=== PATIENT | female | born 1990 | race Caucasian/White ===

== ENCOUNTER 2021-12-29 06:52 | Emergency (ER) | payer OTHER, SELFPAY ==
[2021-12-29 07:00] VITALS: BP 131/82; PULSE 104; RESP 18; TEMP 36.8; O2SAT 100
--- NOTE | 2021-12-29 08:18 | PC.NURSE ---
Pt resting on stretcher. Awaiting orders or disposition.
--- NOTE | 2021-12-29 08:52 | PC.NURSE ---
Pt resting on stretcher. Still awaiting orders or disposition. Pt has been updated. Call light within reach.
--- NOTE | 2021-12-29 09:05 | PC.NURSE ---
PA at bedside for pt assessment.
--- NOTE | 2021-12-29 09:10 | ED.DENTAL ---
HPI - Dental/Oral General Chief complaint: Dental/Oral <Rosemary Marcum PA-C - Last Filed: 12/29/21 17:54> Stated complaint: dental pain <Rosemary Marcum PA-C - Last Filed: 12/29/21 17:54> Time Seen by Provider: 12/29/21 06:59 <Rosemary Marcum PA-C - Last Filed: 12/29/21 17:54> Source: patient <AVERY Trinidad Last Filed: 12/29/21 17:54> Mode of arrival: ambulatory <AVERY Trinidad Last Filed: 12/29/21 17:54> Limitations: no limitations <AVERY Trinidad Last Filed: 12/29/21 17:54> History of Present Illness HPI Narrative: Patient is a 31-year-old female who presents the ED with complaint of dental pain. Patient reports having pain in her right molar and premolar. She had these teeth extracted last by Dr. Mccauley in [place], [place] and has since developed pain in both sockets. Denies any recurrent bleeding or pus-like drainage. No gum swelling. She has been taking Ibuprofen and Tylenol alternating at home with minimal relief. She tried calling her dentist but was advised to come to the ED. Hot/cold sensitivity improved since extraction. Patient has been on amoxicillin 500 mg since before the extraction as she previously had another left upper dental extraction recently. She is still currently taking these. She is scheduled to see her dentist again next Friday. Denies any fever, chills, nausea, vomiting, neck pain, trouble breathing or swallowing. No drug use. <AVERY Trinidad Last Filed: 12/29/21 17:54> Related Data Allergies/adverse reactions: Allergies Allergy/AdvReac Type Severity Reaction Status Date / Time No Known Allergies Allergy Verified 12/29/21 07:19 <AVERY Trinidad Last Filed: 12/29/21 17:54> Review of Systems Review of Systems: CONSTITUTIONAL: Denies fever, chills. ENT: Reports pain in R upper molar and premolar. Denies dysphagia, sore throat, bleeding/pus from dental sockets, gum swelling. RESPIRATORY: Denies dyspnea. GASTROINTESTINAL: Denies nausea, vomiting. MUSCULOSKELETAL: Denies neck pain. <Rosemary Marcum PA-C - Last Filed: 12/29/21 17:54> All systems reviewed & are unremarkable except as noted in HPI and below <Rosemary Marcum PA-C - Last Filed: 12/29/21 17:54> PMFSH Past Medical History Medical History: Medical History (Updated 12/29/21 @ 17:16 by Rosemary Marcum PA-C) No pertinent past medical history <Rosemary Marcum PA-C - Last Filed: 12/29/21 17:54> Surgical History Surgical History: Surgical History (Updated 12/29/21 @ 17:45 by Rosemary Marcum PA-C) H/O tooth extraction History of section <Rosemary Marcum PA-C - Last Filed: 12/29/21 17:54> Family History Family History: Family History (Updated 05/05/14 @ 07:13 by DOCTOR UNKNOWN) Father Family history of heart disease in male family member before age 55 <Rosemary Marcum PA-C - Last Filed: 12/29/21 17:54> Social History Social History: Social History (Updated 12/29/21 @ 17:16 by Rosemary Marcum PA-C) Smoking status: Never smoker Alcohol intake: never Substance use: never <Rosemary Marcum PA-C - Last Filed: 12/29/21 17:54> Exam Narrative: GENERAL: Tearful, well-nourished, non-toxic, in mild acute distress. HEAD: Normocephalic, atraumatic. EYES: EOMI, conjunctivae clear bilaterally. THROAT: Extremely poor dentition. Several broken L upper teeth. Dental extractions at teeth #1 and 2 (R upper), and #10 (L frontal). Mild erythema surrounding dental socket around extraction at #2, but no fluctuance appreciated. No gum swelling or fluctuance. Pharynx clear, no exudate. MMs moist. NECK: Supple. No tender adenopathy, no masses. RESPIRATORY: Airway patent, respirations nonlabored. Clear to auscultation bilaterally, no rales, rhonchi, wheezing. CARDIOVASCULAR: Regular rate and rhythm without murmurs, rubs, or gallops. Radial pulses 2+ and equal bilaterally. MUSCULOSKELETAL: Moves all extremities. Strength/ROM
[2021-12-29] MEDS: HYDROcodone/acetaminophen (*CRX) 5-325 MG TABLET 1 TAB PO (09:14)
== END 2021-12-29 09:30 | disposition home or self-care (01) ==
PROVIDERS: Emergency Provider Emergency Medicine
DX: K08.89 Other specified disorders of teeth and supporting structures (principal); Z98.818 Other dental procedure status
CPT/HCPCS: 99283; A9270

== ENCOUNTER 2023-01-05 11:08 | Emergency (ER) | payer OTHER, SELFPAY ==
--- NOTE | ~2023-01-05 | XR_ITS ---
EXAMINATION: XR chest 2V DATE: 01/05/2023 12:14 INDICATION: Cough with rales and wheezing TECHNIQUE: PA and lateral views of the chest were obtained. COMPARISON: None FINDINGS: The lungs are clear with no focal airspace opacities, pulmonary edema, pleural effusion or pneumothor ax. The cardiomediastinal silhouette is normal. Visualized bones and soft tissues are unremarkable. IMPRESSION: 1. No acute cardiopulmonary disease. Reviewed, dictated and finalized at location A.
[2023-01-05 11:19] VITALS: BP 130/72; PULSE 101; RESP 18; TEMP 37.1; O2SAT 99
--- NOTE | 2023-01-05 12:11 | ED.GENADULT ---
HPI - General Adult General Chief complaint: Upper Respiratory Infection Stated complaint: Cough/Chest Congestion Source: patient Mode of arrival: ambulatory Limitations: no limitations History of Present Illness HPI narrative: PATIENT PRESENTS FOR EVALUATION OF SICK SYMPTOMS SINCE YESTERDAY. SYMPTOMS INCLUDE COUGH, SHORTNESS OF BREATH, SUBJECTIVE FEVER, FATIGUE, AND FRONTAL HEADACHE. NO VOMITING OR DIARRHEA. SHE USED FIVE PILLOWS TO PROP HER UP DURING THE NIGHT DUE TO SOB WHEN LAYING DOWN. SHE TRIED TAKING DAYQUIL FOR HER SYMPTOMS. SHE IS NOT SURE IT MAY ANY CONSIDERABLE DIFFERENCE IN HER SYMPTOMS. SHE USES AN ELECTRONIC CIGARETTE. SHE HAD COVID IN THE PAST BUT FEELS WORSE AT THE PRESENT TIME THAN SHE DID WITH COVID. Related Data Allergies Allergy/AdvReac Type Severity Reaction Status Date / Time No Known Allergies Allergy Verified 12/29/21 07:19 Review of Systems Review of Systems: CONSTITUTIONAL: REPORTS SUBJECTIVE FEVER AND FATIGUE. DENIESCHILLS, OR SWEATS. EYES: DENIES VISUAL CHANGES, REDNESS, OR DISCHARGE. ENT: DENIES RHINORRHEA, CONGESTION, SORE THROAT, OR OTALGIA. CARDIOVASCULAR: DENIES CHEST PAIN, PALPITATIONS, OR EDEMA. RESPIRATORY: REPORTS PRODUCTIVE COUGH OF GREEN SPUTUTM WITH ASSOCIATED SOB GASTROINTESTINAL: DENIES ABDOMINAL PAIN, NAUSEA, VOMITING, OR DIARRHEA. GENITOURINARY: DENIES DYSURIA OR HEMATURIA. SKIN: DENIES RASH OR ITCHING. MUSCULOSKELETAL: DENIES BACK PAIN, JOINT PAIN, OR MYALGIA. NEUROLOGIC: REPORTS FRONTAL HEADACHE. DENIES NUMBNESS, DIZZINESS, OR WEAKNESS. PSYCHIATRIC: DENIES ANXIETY OR DEPRESSION. [facility] Past Medical History Medical History (Updated 01/05/23 @ 12:53 by JAMES Yarbrough, ) No pertinent past medical history Surgical History Surgical History (Updated 01/05/23 @ 12:14 by JAMES Yarbrough, ) H/O tooth extraction History of appendectomy History of section Family History Family History Father Family history of heart disease in male family member before age 55 Social History Social History Smoking status: Current every day smoker Tobacco type: e-cigarettes/vaping Alcohol intake: never Substance use: never Living arrangements: with family Gender identity (if verbalized by the patient): Female Sexual Orientation (if Verbalized by the Patient): Straight or Heterosexual Spiritual care concerns: No Exam Narrative: GENERAL: WELL-APPEARING, WELL-NOURISHED, AND IN NO ACUTE DISTRESS. HEAD: NORMOCEPHALIC, ATRAUMATIC. EYES: PERRLA AND EOMI. ENT: NARES CLEAR, NO RHINORRHEA OR EPISTAXIS. MUCOUS MEMBRANES MOIST. OROPHARYNX WITHOUT TONSILLAR HYPERTROPHY EXUDATE OR OTHER LESIONS. BILATERAL TMS PEARLY CHAVEZ NONBULGING NECK: SUPPLE. NO ADENOPATHY OR MASSES. NO CAROTID BRUITS OR JVD CHEST: WHEEZING AND RALES NOTED IN BILATERAL LUNG MCMAHON POSTERIORLY/ HEART: REGULAR RATE AND RHYTHM. NO MURMUR HEARD. NORMAL PERIPHERAL PULSES. ABDOMEN: SOFT, NONTENDER, NONDISTENDED, NORMAL ACTIVE BOWEL SOUNDS. EXTREMITIES: NORMAL RANGE OF MOTION. NO EDEMA. SKIN: WARM, DRY, NO RASH. NEURO: NO FOCAL DEFICITS. ALERT AND ORIENTED X3. PSYCH: NORMAL MOOD AND AFFECT. Course Course Emergency Course: This is a 32-year-old female who presented for evaluation of respiratory symptoms. COVID and influenza negative. Chest x-ray negative. Exam is consistent with acute viral syndrome. Given steroids and neb treatment while here. Symptoms mildly improved. Will discharge with prednisone, albuterol, Mucinex DM. Advised on smoking cessation. Follow up with primary provider. Go to the ER for worsening symptoms. Patient in agreement plan care Level of Care: Express Care Visit Vital Signs Vital signs: Vital Signs Temperature 37.1 C 01/05/23 11:19 Pulse Rate 101 H 01/05/23 11:19 Respiratory Rate 18 01/05/23 11:19 Blood Press
[2023-01-05] MEDS: IPRATROPIUM BR 0.02% INH SOLN 0.5 MG/2.5 ML VIAL INHALATION (12:22)
[2023-01-05] MEDS: ALBUTEROL SULFATE NEB 2.5 MG/3 ML INH INHALATION (12:22)
[2023-01-05] MEDS: methylPREDNISolone SOD SUCC 125 MG VIAL IM (12:26)
[2023-01-05 12:51] VITALS: PULSE 105; RESP 22; O2SAT 99
== END 2023-01-05 13:02 | disposition home or self-care (01) ==
PROVIDERS: Emergency Provider Nurse Practitioner
DX: J06.9 Acute upper respiratory infection, unspecified (principal); Z20.822 Contact with and (suspected) exposure to COVID-19; F17.290 Nicotine dependence, other tobacco product, uncomplicated
CPT/HCPCS: 71046; 87426; 87804; 90471; 94640; 96372; 99213; C9803; G0463; J2930